=== PATIENT | female | born 1970 | race Caucasian/White ===

== ENCOUNTER 2016-11-13 16:44 | Inpatient (IN) | payer MEDICARE, MEDICAID ==
[2016-11-13] MEDS ORDERED: METAMUCIL FIBE3.4 G1 PO (17:42)
[2016-11-13] MEDS ORDERED: JUNEL 1 MG-201 EACH PO (17:43)
[2016-11-13] MEDS ORDERED: BENZTROPINE MESY1 M1 PO (17:44)
[2016-11-13] MEDS ORDERED: DOC-Q-LACE100 M2 PO (17:45)
[2016-11-13] MEDS ORDERED: PEPCID20 M1 PO (17:45)
[2016-11-13] MEDS ORDERED: GAS RELIEF180 M1 PO (17:46)
[2016-11-13] MEDS ORDERED: MACROBID 100 M100 M1 PO (17:47)
[2016-11-13] MEDS ORDERED: OMEPRAZOLE40 M2 PO (17:47)
[2016-11-13] MEDS ORDERED: LITHIUM CA300 MG/TAB PO (17:47)
[2016-11-13] MEDS ORDERED: TOPAMAX200 M1 PO (17:47)
[2016-11-13] MEDS ORDERED: VIMPAT200 M1 PO (17:49)
[2016-11-13] MEDS ORDERED: ZONEGRAN100 M2 PO (17:49)
[2016-11-13] MEDS ORDERED: SYNTHROID100 MC1 (17:50)
[2016-11-13] MEDS ORDERED: SEROQUEL XR400 M2 PO (18:01)
[2016-11-13] MEDS ORDERED: ABILIFY30 M1 PO (18:02)
[2016-11-13] MEDS ORDERED: ATIVAN0.5 M1 PO (18:03)
--- NOTE | 2016-11-13 18:57 | NUR ---
VIRTUAL CARE NOTE: ASSESSMENT DEFERRED. PT. SLEEPING.
[2016-11-13 20:19] LABS: BASO % 0.3 % (0-2); EOS % 3.4 % (0-7); EOSINOPHIL ABSOLUTE COUNT 0.2 tho/cmm (0.0-0.7); HCT-HEMATOCRIT 44.6 % (34.0-49.0); HGB-HEMOGLOBIN 14.4 gm/dl (12.0-15.5); IMMATURE GRANULOCYTES ABSOLUTE 0.01 tho/cmm (0-0.03); IMMATURE GRANULOCYTES PERCENT 0.2 % (0-0.3); LYMPH % 27.8 % (20-45); LYMPH ABSOLUTE COUNT 1.6 tho/cmm (0.8-4.5); MCH (MEAN CORPUSCULAR HGB) 30.5 pg (28.0-32.0); MCHC MEAN CORPUSCULAR HGB CONC 32.3 % (32.0-36.0); MCV (MEAN CELL VOLUME) 94.5 fl (82.0-96.0); MEAN PLATELET VOLUME 10.7 cmc (9.4-12.4); MONO % 5.3 % (0-12); MONOCYTE ABSOLUTE COUNT 0.3 tho/cmm (0.0-1.2); NEUTROPHIL ABSOLUTE COUNT 3.7 tho/cmm (1.6-8.0); NEUTROPHIL-AUTOMATED 3.7 tho/cmm (1.6-8.0); PLATELET COUNT 142 tho/cmm (150-450); RED BLOOD COUNT 4.72 mil/cmm (4.00-5.20); RED CELL DISTRIBUTION WIDTH 12.9 % (12.4-16.4); WHITE BLOOD COUNT 5.8 tho/cmm (4.0-10.0)
[2016-11-13 20:33] LABS: ALBUMIN 3.4 g/dl (3.5-5.0); ALKALINE PHOSPHATASE 54 U/L (33-138); ALT/SGPT 18 U/L (12-78); ANION GAP 12 mmol/L (0-20); AST/SGOT 14 U/L (10-40); BILIRUBIN,DIRECT <0.1 mg/dl (0.0-0.3); BILIRUBIN,INDIRECT 0.3 mg/dL (0.0-1.0); BILIRUBIN,TOTAL 0.4 mg/dl (0-1.5); BLOOD UREA NITROGEN 17 mg/dl (6-24); CALCIUM 8.7 mg/dl (8.5-10.5); CARBON DIOXIDE-VENOUS 24 mmol/L (22-32); CHLORIDE 108 mmol/l (96-110); CREATININE 0.98 mg/dl (0.50-1.10); GLUCOSE 94 mg/dL (70-110); MAGNESIUM 2.3 mg/dl (1.8-2.6); POTASSIUM 3.8 mmol/L (3.7-5.1); SODIUM 140 mmol/L (135-145); eGFR VALUE FOR BLACK 80 mL/Min
[2016-11-14 05:14] LABS: BASO % 0.4 % (0-2); EOS % 2.8 % (0-7); EOSINOPHIL ABSOLUTE COUNT 0.2 tho/cmm (0.0-0.7); HCT-HEMATOCRIT 44.8 % (34.0-49.0); HGB-HEMOGLOBIN 14.8 gm/dl (12.0-15.5); LYMPH % 14.5 % (20-45); LYMPH ABSOLUTE COUNT 0.8 tho/cmm (0.8-4.5); MCH (MEAN CORPUSCULAR HGB) 30.9 pg (28.0-32.0); MCV (MEAN CELL VOLUME) 93.5 fl (82.0-96.0); MEAN PLATELET VOLUME 11.1 cmc (9.4-12.4); MONO % 5.6 % (0-12); MONOCYTE ABSOLUTE COUNT 0.3 tho/cmm (0.0-1.2); NEUTROPHIL ABSOLUTE COUNT 4.1 tho/cmm (1.6-8.0); NEUTROPHIL-AUTOMATED 4.1 tho/cmm (1.6-8.0); NEUTROPHILS % 76.7 % (40-80); PLATELET COUNT 139 tho/cmm (150-450); RED BLOOD COUNT 4.79 mil/cmm (4.00-5.20); WHITE BLOOD COUNT 5.4 tho/cmm (4.0-10.0)
[2016-11-14 05:23] LABS: ANION GAP 13 mmol/L (0-20); BLOOD UREA NITROGEN 18 mg/dl (6-24); CALCIUM 8.3 mg/dl (8.5-10.5); CARBON DIOXIDE-VENOUS 21 mmol/L (22-32); CHLORIDE 110 mmol/l (96-110); CREATININE 0.81 mg/dl (0.50-1.10); GLUCOSE 103 mg/dL (70-110); MAGNESIUM 2.2 mg/dl (1.8-2.6); POTASSIUM 3.9 mmol/L (3.7-5.1); SODIUM 140 mmol/L (135-145); eGFR VALUE FOR BLACK >90 mL/Min
[2016-11-14] MEDS ORDERED: SYNTHROID0.2 MG/TAB PO (10:46)
[2016-11-14] MEDS ORDERED: SYNTHROID100 MC1 PO (10:46)
[2016-11-14] MEDS ORDERED: SEROQUEL X200 MG/TAB PO (10:49)
[2016-11-14] MEDS ORDERED: SEROQUEL X300 MG/TAB PO (10:49)
[2016-11-18] MEDS ORDERED: MIRALAX17 G2 PO (10:10)
[2016-11-18] MEDS ORDERED: SENOKOT8.6 M1 PO (10:13)
[2016-11-18] MEDS ORDERED: STOP HOME MEDICATION (10:14)
--- NOTE | 2016-11-18 10:45 | NUR ---
VIRTUAL CARE NOTE: MOM (TRACEY) WAS CONTACTED REGADING DISCHARGE PLAN TODAY. PER MOM, SHE IS OK FOR CAREGIVER (GWENDOLYN) TO SIGNED DISCHARGE PAPER WITH MOM'S CONSENT. MOM ALSO CONFIRMED THAT PT'S PCP IS , APPOINTMENT MADE UPON DISCHARGE.
--- NOTE | 2016-11-18 12:50 | NUR ---
VIRTUAL CARE NOTE: PT DRESSED, CAREGIVER-GWENDOLYN AT BEDSIDE READY FOR DISCHARGE INSTRUCTIONS. INFORMATION GIVEN TO CAREGIVER, NO QUESTIONS OR CONCERNS. MOM HAS BEEN INFORMED OF DISCHARGE AND PERMITTED CAREGIVER MALYAL TO SIGN DISCHARGE PAPER WORK. INFORMED FLOOR NURSE DISCHARGE TEACHING DONE.
[2017-01-23] MEDS ORDERED: ZOFRAN4 M2 PO (21:01)
[2017-02-15] MEDS ORDERED: ZOFRAN ODT4 MG PO (22:25)
== END 2016-11-18 13:05 | DRG 390 ==
LOC: 5WD 16:44 → BURN 11-15 14:58 → 5WD 11-18 07:43
PROVIDERS: Nurse Practitioner Acute Care; ADMIT Family Medicine
PROC: 05HC33Z Insertion of Infusion Device into Left Basilic Vein, Percutaneous Approach (ICD-10-PCS; principal; 2016-11-13)
DX: K56.7 Ileus, unspecified (principal); D25.9 Leiomyoma of uterus, unspecified; F31.9 Bipolar disorder, unspecified; G40.909 Epilepsy, unspecified, not intractable, without status epilepticus; K21.9 Gastro-esophageal reflux disease without esophagitis; K62.3 Rectal prolapse; E03.9 Hypothyroidism, unspecified; Z66 Do not resuscitate; Z88.8 Allergy status to other drugs, medicaments and biological substances; Z79.899 Other long term (current) drug therapy; T44.3X5A Adverse effect of other parasympatholytics [anticholinergics and antimuscarinics] and spasmolytics, initial encounter; T43.595A Adverse effect of other antipsychotics and neuroleptics, initial encounter
CPT/HCPCS: C1751; C9254; G8978-GP-CH; G8979-GP-CH; G8980-GP-CH; J2060; J2250; J2270; J3010; J7030; Q9967